=== PATIENT | male | born 1970 | race Caucasian/White ===

== ENCOUNTER → 2022-11-21 09:13 | Outpatient (CLI) | payer BC, SELFPAY ==
[2022-11-21 10:56] LABS: Alanine Aminotransferase 13 U/L (12-78); Albumin Level 1.7 g/dl (3.5-5.0); Albumin/Globulin Ratio 0.6 (1.1-1.8); Alkaline Phosphatase 131 U/L (38-126); Anion Gap 4.8 mEq/L (5-15); Aspartate Amino Transferase 24 U/L (17-59); Blood Urea Nitrogen 11 mg/dl (9-20); Calcium 7.2 mg/dl (8.4-10.2); Carbon Dioxide 29 mmol/L (22.0-30.0); Chloride 102 mmol/L (98-107); Estimated Glomerular Filt Rate 53 ml/min (>60); GFR (African American) 65 ML/MIN (>60); Glucose 101 mg/dl (74-100); Potassium 3.8 mmoL/L (3.5-5.1); Sodium 132 mmol/L (136-145); Total Protein,Serum 4.7 g/dl (6.3-8.2)
[2022-11-21 11:04] LABS: Bilirubin,Total < 0.1 mg/dl (0.2-1.3)
[2022-11-21 11:05] LABS: NT Pro Brain Natriuretic Pep. 427 pg/mL (0-125)
[2022-11-22 11:33] LABS: Prealbumin 25 mg/dL (10-36)
[2022-11-25 23:47] LABS: Hep A Ab, IgM NEGATIVE; Hepatitis B Core Antibody IgM NEGATIVE; Hepatitis B Surface Antigen NEGATIVE; Hepatitis C Antibody <0.1
== END ==
PROVIDERS: PCP Family Medicine; Visit Provider Family Medicine
DX: R60.9 Edema, unspecified (principal); R79.89 Other specified abnormal findings of blood chemistry; F19.11 Other psychoactive substance abuse, in remission; R06.09 Other forms of dyspnea; R74.8 Abnormal levels of other serum enzymes; D64.9 Anemia, unspecified; R23.1 Pallor; L03.90 Cellulitis, unspecified
CPT/HCPCS: 36415; 80053; 80074; 83880; 84134; 84443

== ENCOUNTER → 2022-11-24 13:46 | Outpatient (CLI) | payer BC, SELFPAY | PROVIDERS: PCP Family Medicine; Visit Provider Family Medicine | DX: R60.9 Edema, unspecified (principal); R06.00 Dyspnea, unspecified; F19.11 Other psychoactive substance abuse, in remission | CPT/HCPCS: 36415 ==

== ENCOUNTER → 2022-12-04 08:42 | Outpatient (CLI) | payer BC, SELFPAY ==
--- NOTE | 2022-12-04 08:42 | CT_ITS ---
FINAL REPORT TECHNIQUE: Axial imaging of the chest is obtained after the administration of contrast. 3-D MIP reformatted images were also obtained and reviewed per PE protocol. CLINICAL HISTORY: dyspnea/diffuse edema/anasarca FINDINGS: The pulmonary arteries are well filled. There is no evidence of pulmonary embolus. There is no aortic dissection or intimal flap. There is no axillary lymphadenopathy. An enlarged AP window lymph node measures 2.6 cm. There is no hilar lymphadenopathy. There is no pleural or pericardial effusion. There are changes of emphysema. The lungs are otherwise clear. Limited evaluation of the upper abdomen the demonstrate splenomegaly. There is no acute abnormality. There is no acute osseous abnormality. IMPRESSION: No evidence of pulmonary embolism or aortic dissection. Indeterminate left prevascular lymph node could be reactive. Splenomegaly. Reviewed, Interpreted and Dictated by Anna Brink MD Transcribed by Denise Banuelos Authenticated and [facility]
[2022-12-04 09:36] LABS: MANUAL DIFFERENTIAL MANUAL DIFFERENTIAL (MANUAL DIFF)
[2022-12-04 09:41] LABS: Basophils % 0.3 % (0.1-2.0); Eosinophils # 0.2 K/mm3 (0.0-0.4); Eosinophils % 1.4 % (0.1-12.0); Hematocrit 28.7 % (42.0-52.0); Hemoglobin 9.6 g/dL (14.1-18.0); Lymphocytes % 18.4 % (10-50); Mean Corpuscular HGB Conc 33.5 g/dL (31.8-35.4); Mean Corpuscular Hemoglobin 29.1 pg (27.0-31.2); Mean Corpuscular Volume 86.6 fl (80-94); Monocytes # 0.3 K/mm3 (0.1-1.0); Neutrophils # 8.1 K/mm3 (1.8-7.8); Neutrophils % 76.9 % (37.0-80.0); Platelet Count 221 K/mm3 (142-424); Red Blood Count 3.31 M/mm3 (4.60-6.20); Red Cell Distribution Width 15.2 % (11.5-17.5); White Blood Count 10.6 K/mm3 (4.8-10.8)
[2022-12-04 14:26] LABS: Eosinophils % 5 % (0-3); Lymphocytes % 26 % (10-50); Monocytes % 2 % (2-9); Neutrophils % 67 % (42-76); Platelet Estimate Normal; RBC Morphology Normal; Total Cells Counted 100
[2022-12-06 09:35] LABS: Peripheral Smear Review Scanned Result
== END ==
PROVIDERS: PCP Family Medicine; Visit Provider Nurse Practitioner Family
DX: R06.00 Dyspnea, unspecified (principal); I50.9 Heart failure, unspecified; I42.9 Cardiomyopathy, unspecified; F19.11 Other psychoactive substance abuse, in remission; R60.1 Generalized edema; R60.9 Edema, unspecified; Z72.0 Tobacco use
CPT/HCPCS: 71275; 85007; 85014; 85018; 85048; 85049; Q9967

== ENCOUNTER → 2022-12-07 10:55 | Outpatient (CLI) | payer BC, SELFPAY ==
--- NOTE | 2022-12-07 10:55 | NM_ITS ---
APPROVED REPORT Exam: Nuclear Stress Test Indication: TOB USE, FM HX., SOB, EDEMA Patient Location: Outpatient Stress Tech: Berta Willoughby ME Tech:Mara Dyson, ARRT, RT (R)(N) Ht: 6 ft 0 in Wt: 200 lbs HR: 66 bpm BP: 113/67 mmHg BSA: 2.13 m2 TID: 1.02 History: TOB USE, FM HX., SOB, EDEMA Procedure: Patient received a 0.4 mg of intravenous Lexiscan, resting heart rate 66 bpm, resting blood pressure 113/67 mmHg, with Lexiscan maximum heart rate achived was 86 bpm which is Less than 85 % of the maximum predicted heart rate and blood pressure was 121/60 mmHg. With Lexiscan, patient denied any complaint of chest pain. Electrocardiogram Resting electrocardiogram shows sinus rhythm, with Lexiscan there is less than 1.[address] segment depression noted from the baseline ECG. The EKG portion of the Lexiscan is nondiagnostic. Cardiac Stress and Resting SPECT Images: Cardiac Stress and Resting SPECT images were obtained using technetium 99m Myoview 31.4 mCi stress and 10.52 mCi at rest. Gated SPECT for analysis of segmental wall motion and calculation of the ejection fraction also done. Prone images were also obtained. Cardiac stress and rest respectively show uniform myocardial activity without segmental perfusion abnormality, computer derived ejection fraction is 65% with no regional wall motion abnormality, right ventricle is normal size and contractility. Conclusion: 1. The EKG portion of the Lexiscan is nondiagnostic. 2. No scintigraphic evidence of reversible ischemia seen, computer derived ejection fraction 65% with no regional wall motion abnormality, right ventricle is normal size and contractility. 3. Normal Lexiscan Myoview study. Electronically signed by : Jlaen Read MD 12/08/2022 07:11:13
--- NOTE | 2022-12-07 12:33 | CA_ITS ---
FINAL REPORT CLINICAL HISTORY: dyspnea/diffuse edema/anasarca, smoker, fatigue FINDINGS: DUPLEX VENOUS SONOGRAPHY OF THE BILATERAL LOWER EXTREMITIES Multiple transverse and longitudinal scans were performed of the femoropopliteal deep venous systems, with augmentation and compression maneuvers. FINDINGS: Normal phasic flow was noted in the visualized deep venous systems. No intraluminal increased echogenicity is noted to suggest thrombus. There is normal compression and augmentation of the venous structures. No abnormal venous collaterals are seen. There are mildly enlarged bilateral inguinal lymph nodes which are nonspecific. IMPRESSION: No evidence of deep venous thrombosis of the bilateral lower extremities. Mildly enlarged bilateral inguinal lymph nodes, nonspecific. Reviewed, Interpreted and Dictated by Anna Brink MD Transcribed by Denise Banuelos Authenticated and [facility]
--- NOTE | 2022-12-07 12:33 | CA_ITS ---
APPROVED REPORT EXAM: Comprehensive 2D, Doppler, and color-flow Echocardiogram Gre Instructor: Siomara Tan CRT Ht: 6 ft 0 in Wt: 214lbs BSA: 2.19 BP: 137/42 mmHg Indications: Congestive Heart Failure, Shortness of Breath, Fatigue, Cardiomyopathy 2D Dimensions LVOT 2.05 cm (M/F) 1.5-2.5 LA Volume 27.40 mL LA Volume Index 12.50 mL/m2 (M/F) 16-34 M-Mode Dimensions RVDd 2.90 cm (0.9-2.6) LA Diam 3.21 cm (1.9-4.0) LVDd 5.62 cm (3.5-5.7) Ao Diam 4.65 cm (2.0-3.7) LVDs 2.95 cm (3.5-5.7) IVSd 0.75 cm (0.6-1.1) PWd 0.94 cm (0.6-1.1) EF (Teich) 78.30% FS 47.50% EDV (Teich) 154.90 mL TAPSE 2.82 (<1.7) ESV (Teich) 33.60 mL LV Diastology E Decel Time 250.00 (160-240 msec) E/A Ratio 1.19 MED E' 9.00 (< 7 cm/sec) MED A' 14.50 cm/s E'/MED E' Ratio 11.41 (>14) LAT E' 14.10 (<10 cm/sec) LAT A' 11.40 cm/s E/LAT E' Ratio 7.28 (>14) Aortic Valve AO Peak GR. 9.30 mmHg Mitral Valve MV A Velocity 86.00 (40-130 cm/s) E/A Ratio 1.19 MV Decel. Time 250.00 (160-240 ms) Pulmonary Valve PV Peak Velocity 112.00 (50-150 cm/s) Tricuspid Valve TR P. Velocity 297.00 cm/s RAP Estimate 10.00 mmHg RVSP 45.20 mmHg Left Ventricle Left atrium is normal size, left ventricle is normal size, estimated ejection fraction 55% with no regional wall motion abnormality, diastolic parameters are within normal range. Right Ventricle Right atrium and right ventricle are relatively normal size and function. Aortic Valve Aortic valve is minimally thickened and fibrosed there is no aortic stenosis or aortic insufficiency. Mitral Valve Mitral valve grossly normal, there is trace mitral regurgitation. Tricuspid Valve Tricuspid valve grossly normal, there is trace tricuspid regurgitation, tricuspid regurgitation jet velocity is inadequate for calculation of the right ventricular systolic pressure. Pulmonic Valve Pulmonic valve is poorly visualized. Great Vessels Aortic root is normal size. Inferior vena cava is normal size with normal inspiratory collapse. Pericardium No significant pericardial effusion noted. Conclusion 1. Normal left ventricular size preserved left ventricular systolic function, estimated ejection fraction 55% with no regional wall motion abnormality, diastolic parameters are within normal range. 2. Trace mitral and tricuspid regurgitation. 3. No significant pericardial effusion noted. 4. Inferior vena cava is normal size with normal inspiratory collapse. Electronically signed by : Jalen Read MD 12/08/2022 05:49:59
--- NOTE | 2022-12-07 13:10 | HMH.ITSHM ---
Current Home Medications as stated by this patient Bear Marrero or termite control representative. []TORSEMIDE POTASSIUM BUPRENORPHINE
--- NOTE | 2022-12-07 13:44 | CA_ITS ---
APPROVED REPORT Exam: Pharmacologic Technologist: Nathaly Moore, Ht: 6 ft 0 in Wt: 214 lbs BSA: 2.19 m2 HR: 66 bpm BP: 113/67 mmHg Indications: Shortness of Breath Medical History Medications: TorSEMIDE,,,,, Potassium,,,,, BuPRenorphinE,,,,, AmOXICILin,,,,, Stress Test Details Test: LEXISCAN Reason for pharmacologic stress test: physical limitation. HR Resting HR: 66 bpm Max Heart Rate (APMHR): 169.919984 bpm Max HR Achieved: 91 bpm Target HR (85% APMHR): 143.209811 bpm % of APMHR: 53.85 Recovery HR: 73 bpm BP Resting BP: 113/67 mmHg Max BP: 125/71 mmHg Recovery BP: 125.0/71.0 mmHg ECG Clinical Exercise duration: 04:00 min Highest Stage Achieved: Exercise capacity: 1.0 METs Stress ECG Conclusion Symptoms: SOA, Dizziness, Nausea. Arrhythmias/Ectopy: None ST-T Changes: <1.5mm ST Changes Test Summary REST . . . . . . . Resting REST 17:38 . . 66 . 113/ 67 . . Stage 1 . . . . . . . Myoview Injected Stage 1 01:00 . . 85 . . . . Stage 2 01:00 . . 84 . 118/ 64 . . Stage 3 01:00 . . 86 . 121/ 60 . . Stage 4 01:00 . . 81 . 108/ 60 . Stop exercise at 04:00 RECOVERY 01:00 . . 87 . 115/ 63 . . RECOVERY 02:00 . . 73 . 125/ 71 . . RECOVERY 02:27 . . 75 . 125/ 71 . . Electronically signed by : Jalen Read MD 12/08/2022 07:08:52
== END ==
PROVIDERS: PCP Family Medicine; Visit Provider Nurse Practitioner Family
DX: R06.00 Dyspnea, unspecified (principal); R60.0 Localized edema; R60.1 Generalized edema; I42.9 Cardiomyopathy, unspecified; I50.9 Heart failure, unspecified; F19.11 Other psychoactive substance abuse, in remission; Z72.0 Tobacco use
CPT/HCPCS: 78452; 93017; 93306; 93970; A9502; J2785

== ENCOUNTER → 2022-12-14 12:40 | Outpatient (CLI) | payer BC, SELFPAY ==
[2022-12-14 14:48] LABS: Reticulocyte % (Auto) 1.5 % (0.9-3.2)
[2022-12-14 17:00] LABS: Erythrocyte Sedimentation Rate > 140 mm/hr (0-20)
[2022-12-14 17:37] LABS: Total Protein,Serum 4.8 g/dl (6.3-8.2)
[2022-12-14 17:44] LABS: C-Reactive Protein 28.9 mg/L (0-4)
[2022-12-14 17:51] LABS: Intact Parathyroid Hormone 73.1 pg/mL (7.5-53.5)
[2022-12-14 18:30] LABS: Iron 14 ug/dL (49-181)
[2022-12-14 18:39] LABS: Iron Saturation 0 % (15-55); Total Iron Binding Capacity < 60 ug/dL (261-462)
[2022-12-14 18:45] LABS: Vitamin B12 570 pg/mL (239-931)
[2022-12-14 19:05] LABS: Ferritin 168 ng/ml (17.9-464)
[2022-12-16 06:05] LABS: Haptoglobin 409 mg/dL (29-370)
[2022-12-16 06:11] LABS: HIV Screen 4th Generation wRfx Non Reactive (Non Reactive)
[2022-12-16 14:51] LABS: Alpha-1-Globulin, U 8.1 % (.); Alpha-2-Globulin, U 11.7 % (.); Beta Globulin, U 11.1 % (.); Cytoplasmic (C-ANCA) <1:20 titer (Neg:<1:20); Gamma Globulin, U 21.2 % (.); M-Spike, % Comment: % (Not Observed); Perinuclear (P-ANCA) <1:20 titer (Neg:<1:20); Protein,Total,Urine 219.5 mg/dL (Not Estab.)
[2022-12-16 14:51] LABS: Complement, Total (CH50) 16 U/mL (>41)
[2022-12-18 04:27] LABS: HIV 1 RNA, Real time PCR <20 copies/mL (.)
[2022-12-22 13:43] LABS: APTT 33.2 sec (.); Anti-Cardiolipin Antibody IgG <10 GPL (.); Anti-Cardiolipin Antibody IgM 33 MPL (.); Beta-2 Glycoprotein I Ab, IgA <10 SAU (.); Beta-2 Glycoprotein I Ab, IgG <10 SGU (.); Beta-2 Glycoprotein I Ab, IgM 17 SMU (.); Hexagonal Phase Phospholipid 3 sec (.); INR 1.1 ratio (.); Prothrombin Time 11.4 sec (.); Thrombin Time 16.3 sec (.)
[2022-12-25 19:56] LABS: Rheumatoid Factor IGA 14
[2022-12-25 19:57] LABS: Antinuclear Antibodies (ANA) NEGATIVE; Rheumatoid Factor IGM > 100
== END ==
PROVIDERS: Nurse Practitioner Family; PCP Family Medicine; Visit Provider Internal Medicine
DX: R06.00 Dyspnea, unspecified (principal); E83.51 Hypocalcemia; F19.11 Other psychoactive substance abuse, in remission; I50.9 Heart failure, unspecified; N04.9 Nephrotic syndrome with unspecified morphologic changes; R16.1 Splenomegaly, not elsewhere classified; R59.1 Generalized enlarged lymph nodes; R60.1 Generalized edema; R60.9 Edema, unspecified; R77.0 Abnormality of albumin; R89.8 Other abnormal findings in specimens from other organs, systems and tissues; Z72.0 Tobacco use; Z11.4 Encounter for screening for human immunodeficiency virus [HIV]
CPT/HCPCS: 36415; 82308; 82607; 82728; 82746; 83010; 83540; 83550; 83970; 84155; 84156; 84166; 85044; 85597; 85598; 85610; 85613; 85651; 85670; 85730; 86038; 86140; 86146; 86147; 86162; 86256; 86431; 86703; 87536; G0432

== ENCOUNTER → 2022-12-16 13:58 | Outpatient (CLI) | payer BC, SELFPAY ==
[2022-12-21 12:27] LABS: Albumin, U 58.4 % (.); Alpha-1-Globulin, U 10.3 % (.); Alpha-2-Globulin, U 7.3 % (.); M-Spike, % Not Observed % (Not Observed); Protein,Total,Urine 233.9 mg/dL (Not Estab.)
== END ==
PROVIDERS: PCP Family Medicine; Visit Provider Internal Medicine
DX: R06.00 Dyspnea, unspecified (principal); E83.51 Hypocalcemia; F19.11 Other psychoactive substance abuse, in remission; I50.9 Heart failure, unspecified; N04.9 Nephrotic syndrome with unspecified morphologic changes; R16.1 Splenomegaly, not elsewhere classified; R59.1 Generalized enlarged lymph nodes; R60.1 Generalized edema; R77.0 Abnormality of albumin; R89.8 Other abnormal findings in specimens from other organs, systems and tissues; Z72.0 Tobacco use
CPT/HCPCS: 84156; 84166

== ENCOUNTER 2022-12-18 12:06 | Outpatient (CLI) | payer BC, SELFPAY ==
--- NOTE | 2022-12-18 12:20 | PC.NURSE ---
Gianni0-gautam rabago used ultrasound to obtain 20g iv for blood draw; collected labs; flushed with ns; removed iv;pt d/c home
[2022-12-18 12:26] VITALS: BMI 27.5
[2022-12-18 12:46] LABS: Basophils # 0.1 K/mm3 (0-0.2); Basophils % 0.4 % (0.1-2.0); Eosinophils # 0.2 K/mm3 (0.0-0.4); Eosinophils % 1.8 % (0.1-12.0); Hematocrit 34.5 % (42.0-52.0); Hemoglobin 11.8 g/dL (14.1-18.0); Lymphocytes # 2.3 K/mm3 (0.7-4.5); Lymphocytes % 21.4 % (10-50); Mean Corpuscular HGB Conc 34.1 g/dL (31.8-35.4); Mean Corpuscular Hemoglobin 29.3 pg (27.0-31.2); Mean Corpuscular Volume 85.9 fl (80-94); Mean Platelet Volume 7.8 fl (7.4-10.4); Monocytes # 0.4 K/mm3 (0.1-1.0); Monocytes % 3.3 % (1.7-9.3); Neutrophils # 7.7 K/mm3 (1.8-7.8); Neutrophils % 73.1 % (37.0-80.0); Platelet Count 373 K/mm3 (142-424); Red Blood Count 4.02 M/mm3 (4.60-6.20); White Blood Count 10.5 K/mm3 (4.8-10.8)
[2022-12-18 12:58] LABS: Anion Gap -1.1 mEq/L (5-15); Blood Urea Nitrogen 9 mg/dl (9-20); Calcium 7.2 mg/dl (8.4-10.2); Carbon Dioxide 37 mmol/L (22.0-30.0); Chloride 99 mmol/L (98-107); Creatinine Clearance Estimated 103 mL/min (50-200); Estimated Glomerular Filt Rate 71 ml/min (>60); GFR (African American) 85 ML/MIN (>60); Glucose 101 mg/dl (74-100); Phosphorous 4.6 mg/dl (2.5-4.5); Potassium 3.9 mmoL/L (3.5-5.1); Sodium 131 mmol/L (136-145)
[2022-12-18 13:00] LABS: Creatinine,Urine Random 35 mg/dL (Not Estab.)
[2022-12-18 13:19] LABS: 25-OH Vitamin D, Total < 12.8 ng/mL (30-100)
[2022-12-22 15:20] LABS: Albumin, U 71.7 % (.); Alpha-1-Globulin, U 8.1 % (.); Alpha-2-Globulin, U 5.7 % (.); Beta Globulin, U 6.3 % (.); Gamma Globulin, U 8.2 % (.); M-Spike, % Not Observed % (Not Observed)
== END 2022-12-18 12:30 | disposition home or self-care (01) ==
LOC: INF 12:11
PROVIDERS: Internal Medicine Nephrology; PCP Family Medicine; Visit Provider Internal Medicine Nephrology
DX: N04.9 Nephrotic syndrome with unspecified morphologic changes (principal); E55.9 Vitamin D deficiency, unspecified
CPT/HCPCS: 36415; 80069; 82306; 82570; 84156; 84166; 85025

== ENCOUNTER → 2022-12-21 09:39 | Outpatient (POV) | payer MEDICARE, BC, SELFPAY | PROVIDERS: Visit Provider Internal Medicine Nephrology | DX: Z00.00 Encounter for general adult medical examination without abnormal findings (principal) ==

== ENCOUNTER 2022-12-25 11:55 | Outpatient (CLI) | payer BC, SELFPAY ==
[2022-12-25 12:42] VITALS: BMI 27.1
--- NOTE | 2022-12-25 12:48 | PC.NURSE ---
1248gautam plummer started right upper arm 20g iv with ultrasound;obtained blood return;collected labs;flushed with ns;d/c'd iv
--- NOTE | 2022-12-25 13:03 | US_ITS ---
FINAL REPORT CLINICAL HISTORY: groin pains FINDINGS: Limited sonographic images of the left inguinal region were obtained. There are multiple lymph nodes in the left inguinal region measuring up to 4.2 cm. Presumed fatty jazlyn is identified. There is questionable bowel within the left inguinal canal. IMPRESSION: Enlarged lymph nodes in the left inguinal region. Question hernia. Recommend CT scan. Reviewed, Interpreted and Dictated by Jase Liu MD Transcribed by Jazmine Phan Authenticated and . [facility]
--- NOTE | 2022-12-25 13:03 | US_ITS ---
FINAL REPORT CLINICAL HISTORY: groin pains FINDINGS: Limited sonographic images of the right inguinal region were obtained. There are several lymph nodes in the inguinal region generally measuring up to 3.3 cm or less in size. Presumed fatty jazlyn is identified. No definite hernia is seen. IMPRESSION: Right inguinal lymph nodes. No definite hernia identified. If clinical suspicion for hernia exists, recommend CT for better evaluation. Reviewed, Interpreted and Dictated by Jase Liu MD Transcribed by Jazmine Phan Authenticated and [facility]
[2022-12-25 13:20] LABS: Creatinine,Urine Random 63 mg/dL (Not Estab.)
[2022-12-25 13:25] LABS: Activated Partial Thrombo Time 32.3 seconds (22.8-30.6); INR 0.97 (0.9-1.1); Prothrombin Time 10.5 seconds (10.1-12.5)
[2022-12-28 15:13] LABS: Albumin 0.8 g/dL (2.9-4.4); Alpha-1-Globulin 0.2 g/dL (0.0-0.4); Alpha-2-Globulin 1.1 g/dL (0.4-1.0); Gamma Globulin 1.6 g/dL (0.4-1.8); Protein, Total 4.4 g/dL (6.0-8.5)
[2022-12-29 23:17] LABS: Free Kappa Lt Chains 125.4
== END 2022-12-25 12:48 | disposition home or self-care (01) ==
LOC: RAD 11:56
PROVIDERS: PCP Family Medicine; Referring Provider Internal Medicine Nephrology; Visit Provider Nurse Practitioner Family
DX: R10.30 Lower abdominal pain, unspecified (principal); R59.1 Generalized enlarged lymph nodes; R79.1 Abnormal coagulation profile
CPT/HCPCS: 36415; 76882; 82043; 82570; 83883; 84155; 84165; 85610; 85730

== ENCOUNTER → 2023-01-05 08:43 | Outpatient (CLI) | payer BC, SELFPAY ==
--- NOTE | 2023-01-05 08:43 | NM_ITS ---
FINAL REPORT CLINICAL HISTORY: hypocalcemia, lymphadenopathy 9:25am 25.8 mci tc mdp FINDINGS: EXISTING RELEVANT IMAGING STUDIES: Chest CT dated December 04, 2022 TECHNIQUE: The patient was injected with 25.8 mCi of technetium 99-MDP. 3 hour delayed images were obtained. FINDINGS: There is diffuse increased tracer activity in the bilateral shoulders, hips, knees, ankles, and feet of uncertain significance. No other abnormal tracer activity is identified. IMPRESSION: Diffuse increased tracer activity has described of uncertain significance. Findings could be related to metastatic bone disease. Reviewed, Interpreted and Dictated by Wesley Redd III, MD Transcribed by Villa Morales Authenticated and [facility]
== END ==
PROVIDERS: PCP Family Medicine; Visit Provider Nurse Practitioner Family
DX: E83.51 Hypocalcemia (principal); N04.9 Nephrotic syndrome with unspecified morphologic changes; R59.1 Generalized enlarged lymph nodes; R77.0 Abnormality of albumin
CPT/HCPCS: 78306; A9503

== ENCOUNTER 2023-01-12 13:24 | Outpatient (CLI) | payer BC, SELFPAY ==
[2023-01-12 13:51] VITALS: BMI 28.5
--- NOTE | 2023-01-12 13:57 | PC.NURSE ---
gautam ace used ultrasound to started 20g iv in right upper arm for blood work and dis continued. pt tolerated well and d.c home.
[2023-01-12 14:09] LABS: Basophils # 0.1 K/mm3 (0-0.2); Basophils % 0.4 % (0.1-2.0); Eosinophils # 0.2 K/mm3 (0.0-0.4); Eosinophils % 1.5 % (0.1-12.0); Hematocrit 30.7 % (42.0-52.0); Hemoglobin 10.3 g/dL (14.1-18.0); Lymphocytes # 2.5 K/mm3 (0.7-4.5); Lymphocytes % 20.7 % (10-50); Mean Corpuscular HGB Conc 33.5 g/dL (31.8-35.4); Mean Corpuscular Hemoglobin 28.9 pg (27.0-31.2); Mean Corpuscular Volume 86.2 fl (80-94); Mean Platelet Volume 8.1 fl (7.4-10.4); Monocytes # 0.4 K/mm3 (0.1-1.0); Neutrophils % 74.4 % (37.0-80.0); Platelet Count 341 K/mm3 (142-424); Red Blood Count 3.56 M/mm3 (4.60-6.20); Red Cell Distribution Width 15.1 % (11.5-17.5); White Blood Count 12.2 K/mm3 (4.8-10.8)
[2023-01-12 14:15] LABS: Albumin Level 1.8 g/dl (3.5-5.0); Blood Urea Nitrogen 16 mg/dl (9-20); Calcium 7.1 mg/dl (8.4-10.2); Carbon Dioxide 34 mmol/L (22.0-30.0); Chloride 102 mmol/L (98-107); Creatinine Clearance Estimated 78 mL/min (50-200); Estimated Glomerular Filt Rate 49 ml/min (>60); GFR (African American) 60 ML/MIN (>60); Glucose 99 mg/dl (74-100); Phosphorous 4.7 mg/dl (2.5-4.5); Sodium 128 mmol/L (136-145)
[2023-01-15 21:07] LABS: Cystatin C 2.04 mg/L (0.67-1.14)
== END 2023-01-12 14:00 | disposition home or self-care (01) ==
LOC: LAB 13:27
PROVIDERS: PCP Family Medicine; Visit Provider Internal Medicine Nephrology
DX: E85.9 Amyloidosis, unspecified; N04.8 Nephrotic syndrome with other morphologic changes; R94.4 Abnormal results of kidney function studies; R79.89 Other specified abnormal findings of blood chemistry; N18.30 Chronic kidney disease, stage 3 unspecified
CPT/HCPCS: 36415; 80069; 82610; 85025

== ENCOUNTER → 2023-01-14 12:24 | Outpatient (CLI) | payer BC, SELFPAY ==
[2023-01-14 13:43] LABS: Total Protein 24 Hour,Urine 8775 mg/24 hr (40-90); Total Volume,Urine 2250 mL (800-1800)
[2023-01-18 11:19] LABS: Albumin, U 50.4 % (.); Alpha-1-Globulin, U 12.6 % (.); Alpha-2-Globulin, U 11.1 % (.); Beta Globulin, U 8.1 % (.); Gamma Globulin, U 17.8 % (.); M-Spike, % Comment: % (Not Observed); Prot,24hr calculated 4365 mg/24 hr (30-150); Protein,Total,Urine 198.4 mg/dL (Not Estab.)
== END ==
PROVIDERS: PCP Family Medicine; Visit Provider Internal Medicine Nephrology
DX: N04.9 Nephrotic syndrome with unspecified morphologic changes (principal); E85.9 Amyloidosis, unspecified
CPT/HCPCS: 84155; 84156; 84166

== ENCOUNTER → 2023-01-14 12:39 | Outpatient (POV) | payer MEDICARE, BC, SELFPAY | PROVIDERS: Visit Provider Internal Medicine Nephrology | DX: Z00.00 Encounter for general adult medical examination without abnormal findings (principal) ==

== ENCOUNTER 2023-01-29 13:57 | Outpatient (CLI) | payer BC, SELFPAY ==
[2023-01-29 14:52] VITALS: BMI 27.8
[2023-01-29 15:11] LABS: Basophils % 0.3 % (0.1-2.0); Eosinophils # 0.2 K/mm3 (0.0-0.4); Eosinophils % 2.3 % (0.1-12.0); Hematocrit 28.3 % (42.0-52.0); Hemoglobin 9.6 g/dL (14.1-18.0); Lymphocytes # 1.9 K/mm3 (0.7-4.5); Lymphocytes % 24.2 % (10-50); Mean Corpuscular HGB Conc 33.9 g/dL (31.8-35.4); Mean Corpuscular Hemoglobin 29.1 pg (27.0-31.2); Mean Corpuscular Volume 85.8 fl (80-94); Mean Platelet Volume 8.6 fl (7.4-10.4); Monocytes # 0.3 K/mm3 (0.1-1.0); Monocytes % 3.2 % (1.7-9.3); Neutrophils # 5.6 K/mm3 (1.8-7.8); Neutrophils % 70.1 % (37.0-80.0); Platelet Count 328 K/mm3 (142-424)
[2023-01-29 15:13] LABS: Chloride 97 mmol/L (98-107)
[2023-01-29 15:14] LABS: Potassium 3.6 mmoL/L (3.5-5.1); Sodium 127 mmol/L (136-145)
[2023-01-29 15:16] LABS: Alanine Aminotransferase 14 U/L (12-78); Alkaline Phosphatase 128 U/L (38-126); Anion Gap -0.4 mEq/L (5-15); Aspartate Amino Transferase 28 U/L (17-59); Blood Urea Nitrogen 14 mg/dl (9-20); Carbon Dioxide 34 mmol/L (22.0-30.0); Creatinine Clearance Estimated 96 mL/min (50-200); Estimated Glomerular Filt Rate 64 ml/min (>60); GFR (African American) 77 ML/MIN (>60)
[2023-01-29 15:17] LABS: Albumin Level 1.7 g/dl (3.5-5.0); Albumin/Globulin Ratio 0.6 (1.1-1.8); Globulin 2.8 g/dL (1.3-3.2); Glucose 84 mg/dl (74-100); Total Protein,Serum 4.5 g/dl (6.3-8.2)
[2023-01-29 15:18] LABS: Bilirubin,Total < 0.1 mg/dl (0.2-1.3)
--- NOTE | 2023-01-29 15:45 | PC.NURSE ---
PT CAME INTO GET LABS DRAW VIA ULTRASOUND; LABS WERE DRAWN AND SENT TO LAB
[2023-01-29 15:48] LABS: NT Pro Brain Natriuretic Pep. 293 pg/mL (0-125)
== END 2023-01-29 14:35 | disposition home or self-care (01) ==
PROVIDERS: PCP Family Medicine; Visit Provider Internal Medicine Medical Oncology
DX: D64.9 Anemia, unspecified (principal); I50.9 Heart failure, unspecified
CPT/HCPCS: 36415; 80053; 83880; 85025

== ENCOUNTER 2023-02-18 13:16 | Outpatient (CLI) | payer BC, SELFPAY ==
[2023-02-18 13:22] VITALS: BMI 27.5
--- NOTE | 2023-02-18 13:35 | PC.NURSE ---
gautam edmondson started right upper arm ultrasound guided 20g iv;obtained blood return;collected labs;flushed with ns;d/c and covered with 2x2 and coban.
[2023-02-18 14:08] LABS: Basophils % 0.4 % (0.1-2.0); Eosinophils # 0.2 K/mm3 (0.0-0.4); Eosinophils % 2.2 % (0.1-12.0); Hematocrit 28.5 % (42.0-52.0); Lymphocytes # 2.2 K/mm3 (0.7-4.5); Lymphocytes % 21.9 % (10-50); Mean Corpuscular HGB Conc 31.7 g/dL (31.8-35.4); Mean Corpuscular Hemoglobin 28.6 pg (27.0-31.2); Mean Corpuscular Volume 90.3 fl (80-94); Mean Platelet Volume 6.7 fl (7.4-10.4); Monocytes # 0.3 K/mm3 (0.1-1.0); Monocytes % 3.3 % (1.7-9.3); Neutrophils # 7.3 K/mm3 (1.8-7.8); Neutrophils % 72.1 % (37.0-80.0); Platelet Count 304 K/mm3 (142-424); Red Blood Count 3.15 M/mm3 (4.60-6.20); Red Cell Distribution Width 15.2 % (11.5-17.5); White Blood Count 10.2 K/mm3 (4.8-10.8)
[2023-02-18 15:02] LABS: Chloride 99 mmol/L (98-107); Sodium 131 mmol/L (136-145)
[2023-02-18 15:03] LABS: Albumin Level 1.8 g/dl (3.5-5.0); Potassium 3.4 mmoL/L (3.5-5.1)
[2023-02-18 15:05] LABS: Anion Gap 2.4 mEq/L (5-15); Blood Urea Nitrogen 17 mg/dl (9-20); Carbon Dioxide 33 mmol/L (22.0-30.0); Creatinine Clearance Estimated 88 mL/min (50-200); Estimated Glomerular Filt Rate 58 ml/min (>60); GFR (African American) 70 ML/MIN (>60)
[2023-02-18 15:06] LABS: Calcium 7.1 mg/dl (8.4-10.2); Glucose 99 mg/dl (74-100); Phosphorous 4.4 mg/dl (2.5-4.5)
== END 2023-02-18 13:40 | disposition home or self-care (01) ==
LOC: INF 13:16
PROVIDERS: Internal Medicine Nephrology; PCP Family Medicine; Visit Provider Internal Medicine Medical Oncology
DX: E85.9 Amyloidosis, unspecified (principal); N04.9 Nephrotic syndrome with unspecified morphologic changes
CPT/HCPCS: 36415; 80069; 85025

== ENCOUNTER → 2023-02-22 14:33 | Outpatient (POV) | payer BC, SELFPAY | PROVIDERS: Visit Provider Internal Medicine Nephrology | DX: Z00.00 Encounter for general adult medical examination without abnormal findings (principal) ==

== ENCOUNTER → 2023-02-26 13:04 | Outpatient (CLI) | payer BC, SELFPAY ==
[2023-02-26 13:09] LABS: Microscopic, Urine URINE MICROSCOPIC (MICROSCOPIC)
[2023-02-26 13:29] LABS: Appearance,Urine CLEAR (Clear); Bilirubin,Urine Negative (Negative); Blood, Urine 1+ (Negative); Color,Urine YELLOW (Yellow); Glucose,Urine (UA) Negative (Negative); Ketones,Urine Negative (Negative); Leukocyte Esterase,Urine Negative (Negative); Nitrate,Urine Negative (Negative); Protein,Urine 3+ (Negative); Urobilinogen,Urine 0.2 EU/dl (0.2)
[2023-02-26 13:44] LABS: Bacteria,Urine Trace /lpf; RBC,Urine Occasional #/hpf (0-3); Squamous Epithelial Cell,Urine Occasional #/hpf (0-5); WBC,Urine Occasional #/hpf (0-3)
[2023-02-26 14:06] LABS: Creatinine,Urine Random 52 mg/dL (Not Estab.)
== END ==
PROVIDERS: PCP Family Medicine; Visit Provider Internal Medicine Nephrology
DX: E85.3 Secondary systemic amyloidosis (principal); N04.8 Nephrotic syndrome with other morphologic changes
CPT/HCPCS: 81001; 82570; 84155

== ENCOUNTER → 2023-03-15 12:47 | Outpatient (CLI) | payer BC, SELFPAY ==
[2023-03-15 12:47] VITALS: BMI 29.8
[2023-03-15 13:31] LABS: Microscopic, Urine URINE MICROSCOPIC (MICROSCOPIC)
[2023-03-15 13:34] LABS: Appearance,Urine CLEAR (Clear); Bilirubin,Urine Negative (Negative); Blood, Urine 1+ (Negative); Color,Urine YELLOW (Yellow); Glucose,Urine (UA) Negative (Negative); Ketones,Urine Negative (Negative); Leukocyte Esterase,Urine Negative (Negative); Nitrate,Urine Negative (Negative); PH,Urine 5.5 (5.0-8.5); Protein,Urine 3+ (Negative); Urobilinogen,Urine 0.2 EU/dl (0.2)
[2023-03-15 13:36] LABS: Basophils % 0.1 % (0.1-2.0); Eosinophils # 0.2 K/mm3 (0.0-0.4); Hematocrit 28.4 % (42.0-52.0); Hemoglobin 9.7 g/dL (14.1-18.0); Lymphocytes # 1.3 K/mm3 (0.7-4.5); Lymphocytes % 8.1 % (10-50); Mean Corpuscular HGB Conc 34.1 g/dL (31.8-35.4); Mean Corpuscular Hemoglobin 29.5 pg (27.0-31.2); Mean Corpuscular Volume 86.7 fl (80-94); Mean Platelet Volume 7.9 fl (7.4-10.4); Monocytes # 0.2 K/mm3 (0.1-1.0); Monocytes % 1.1 % (1.7-9.3); Neutrophils # 14.5 K/mm3 (1.8-7.8); Neutrophils % 89.6 % (37.0-80.0); Platelet Count 335 K/mm3 (142-424); Red Blood Count 3.28 M/mm3 (4.60-6.20); White Blood Count 16.2 K/mm3 (4.8-10.8)
[2023-03-15 13:39] LABS: Chloride 91 mmol/L (98-107); Sodium 126 mmol/L (136-145)
[2023-03-15 13:40] LABS: Albumin Level 1.6 g/dl (3.5-5.0); Potassium 3.2 mmoL/L (3.5-5.1)
[2023-03-15 13:41] LABS: MANUAL DIFFERENTIAL MANUAL DIFFERENTIAL (MANUAL DIFF)
[2023-03-15 13:42] LABS: Anion Gap 8.2 mEq/L (5-15); Blood Urea Nitrogen 26 mg/dl (9-20); Carbon Dioxide 30 mmol/L (22.0-30.0); Creatinine Clearance Estimated 69 mL/min (50-200); Estimated Glomerular Filt Rate 40 ml/min (>60); GFR (African American) 48 ML/MIN (>60); Iron 20 ug/dL (49-181); Phosphorous 4.8 mg/dl (2.5-4.5)
[2023-03-15 13:43] LABS: Calcium 6.7 mg/dl (8.4-10.2); Glucose 101 mg/dl (74-100)
[2023-03-15 13:48] LABS: Creatinine,Urine Random 41 mg/dL (Not Estab.)
[2023-03-15 13:53] LABS: Bacteria,Urine Trace /lpf; Squamous Epithelial Cell,Urine Occasional #/hpf (0-5); Total Iron Binding Capacity 98 ug/dL (261-462)
[2023-03-15 14:06] LABS: Total Iron Binding Capacity < 60 ug/dL (261-462)
[2023-03-15 14:18] LABS: Ferritin 224 ng/ml (17.9-464)
[2023-03-15 15:06] LABS: Lymphocytes % 4 % (10-50); Monocytes % 1 % (2-9); Neutrophils % 95 % (42-76); Platelet Estimate Normal; RBC Morphology Normal; Total Cells Counted 100
== END ==
PROVIDERS: Visit Provider Internal Medicine Nephrology
DX: E85.3 Secondary systemic amyloidosis (principal); N04.8 Nephrotic syndrome with other morphologic changes; D64.9 Anemia, unspecified; D50.8 Other iron deficiency anemias
CPT/HCPCS: 80069; 81001; 82570; 82728; 83540; 83550; 84155; 85007; 85025

== ENCOUNTER → 2023-03-18 13:30 | Outpatient (POV) | payer BC, SELFPAY | PROVIDERS: Visit Provider Internal Medicine Nephrology | DX: Z00.00 Encounter for general adult medical examination without abnormal findings (principal) ==

== ENCOUNTER 2023-04-23 11:44 | Outpatient (CLI) | payer BC, SELFPAY ==
[2023-04-23 11:47] VITALS: BMI 27.5
[2023-04-23 12:19] LABS: Basophils % 0.1 % (0.1-2.0); Eosinophils # 0.2 K/mm3 (0.0-0.4); Eosinophils % 1.2 % (0.1-12.0); Hematocrit 25.4 % (42.0-52.0); Hemoglobin 8.3 g/dL (14.1-18.0); Lymphocytes % 13.3 % (10-50); Mean Corpuscular HGB Conc 32.5 g/dL (31.8-35.4); Mean Corpuscular Hemoglobin 27.8 pg (27.0-31.2); Mean Corpuscular Volume 85.5 fl (80-94); Mean Platelet Volume 8.4 fl (7.4-10.4); Monocytes # 0.3 K/mm3 (0.1-1.0); Monocytes % 2.1 % (1.7-9.3); Neutrophils # 12.2 K/mm3 (1.8-7.8); Neutrophils % 83.3 % (37.0-80.0); Platelet Count 306 K/mm3 (142-424); Red Blood Count 2.97 M/mm3 (4.60-6.20); Red Cell Distribution Width 15.2 % (11.5-17.5); White Blood Count 14.7 K/mm3 (4.8-10.8)
[2023-04-23 12:24] LABS: Chloride 96 mmol/L (98-107); Sodium 127 mmol/L (136-145)
[2023-04-23 12:25] LABS: Albumin Level 1.3 g/dl (3.5-5.0); Potassium 3.4 mmoL/L (3.5-5.1)
[2023-04-23 12:27] LABS: Blood Urea Nitrogen 77 mg/dl (9-20); Creatinine Clearance Estimated 26 mL/min (50-200); Estimated Glomerular Filt Rate 15 ml/min (>60); GFR (African American) 18 ML/MIN (>60)
[2023-04-23 12:28] LABS: Anion Gap 14.4 mEq/L (5-15); Carbon Dioxide 20 mmol/L (22.0-30.0); Glucose 98 mg/dl (74-100); Phosphorous 11.4 mg/dl (2.5-4.5)
[2023-04-23 12:29] LABS: Calcium 5.4 mg/dl (8.4-10.2)
--- NOTE | 2023-04-23 15:21 | PC.NURSE ---
Shante Beth called RN at 1227 to report critical lab results of creatinine of 4.30 and Calcium of 5.4. RN repeated and verified pt name, and lab results. RN notified Mayelin in Dr Davidson's office and she stated she would contact pt for further instructions. no additional orders received.
== END 2023-04-23 12:10 | disposition home or self-care (01) ==
LOC: INF 11:45
PROVIDERS: PCP Internal Medicine Nephrology; Visit Provider Internal Medicine Nephrology
DX: E85.3 Secondary systemic amyloidosis (principal); Z45.2 Encounter for adjustment and management of vascular access device
CPT/HCPCS: 36591; 80069; 85025; J1642

== ENCOUNTER 2023-04-26 13:30 | Outpatient (CLI) | payer BC, SELFPAY ==
[2023-04-26 14:16] VITALS: BMI 27.5
[2023-04-26 14:33] LABS: C-Reactive Protein 102.7 mg/L (0-4)
[2023-04-26 15:04] LABS: Erythrocyte Sedimentation Rate > 140 mm/hr (0-20)
[2023-04-26 15:47] LABS: Microscopic, Urine URINE MICROSCOPIC (MICROSCOPIC)
[2023-04-26 15:57] LABS: Appearance,Urine SL CLOUDY (Clear); Bilirubin,Urine Negative (Negative); Blood, Urine 2+ (Negative); Color,Urine YELLOW (Yellow); Glucose,Urine (UA) Negative (Negative); Ketones,Urine Negative (Negative); Leukocyte Esterase,Urine TRACE (Negative); Nitrate,Urine Negative (Negative); PH,Urine 5.5 (5.0-8.5); Protein,Urine 3+ (Negative); Specific Gravity, Urine 1.025 (1.005-1.030); Urobilinogen,Urine 0.2 EU/dl (0.2)
[2023-04-26 16:06] LABS: Creatinine,Urine Random 147 mg/dL (Not Estab.)
[2023-04-26 16:16] LABS: Bacteria,Urine Trace /lpf; WBC,Urine 20-50 #/hpf (0-3); Yeast,Urine 4+ /lpf
[2023-04-27 13:54] LABS: Anti-Centromere B Antibodies <0.2 AI (0.0-0.9)
[2023-04-27 16:00] LABS: Cytoplasmic (C-ANCA) <1:20 titer (Neg:<1:20); Immunoglobulin A, Qn 243 mg/dL (90-386); Immunoglobulin G, Qn 1114 mg/dL (603-1613); Immunoglobulin M, Qn 469 mg/dL (20-172); Perinuclear (P-ANCA) <1:20 titer (Neg:<1:20)
[2023-04-28 14:37] LABS: Albumin, U 31.9 % (.); Alpha-2-Globulin, U 16.1 % (.); M-Spike, % Comment: % (Not Observed)
[2023-05-03 18:09] LABS: HLA-B27 Negative (.)
== END 2023-04-26 13:45 | disposition home or self-care (01) ==
LOC: INF 13:32
PROVIDERS: PCP Family Medicine; Visit Provider Internal Medicine Nephrology
DX: E85.3 Secondary systemic amyloidosis (principal); E85.4 Organ-limited amyloidosis; N08 Glomerular disorders in diseases classified elsewhere
CPT/HCPCS: 36591; 81001; 82570; 82784; 84155; 84156; 84166; 85651; 86140; 86235; 86256; 86334; 86812; 87086; 96523; J1642

== ENCOUNTER → 2023-04-26 13:51 | Outpatient (POV) | payer BC, SELFPAY | PROVIDERS: Visit Provider Internal Medicine Nephrology | DX: Z00.00 Encounter for general adult medical examination without abnormal findings (principal) ==

== ENCOUNTER 2023-07-09 17:44 | Emergency (ER) | payer BC, SELFPAY ==
[2023-07-09 17:46] VITALS: BP 117/70; PULSE 65; RESP 18; TEMP 36.4; O2SAT 100; BMI 32.2
--- NOTE | 2023-07-09 18:00 | PC.NURSE ---
ER MD Arreaga at
--- NOTE | 2023-07-09 18:01 | CT_ITS ---
PROCEDURE INFORMATION: Exam: CT Abdomen And Pelvis With Contrast Exam date and time: 07/09/2023 7:13 PM Age: 52 years old Clinical indication: Abdominal pain; Localized; Left lower quadrant (llq); Additional info: L inguinal hernia, severe pain, irreducible TECHNIQUE: Imaging protocol: Computed tomography of the abdomen and pelvis with contrast. Radiation optimization: All CT scans at this facility use at least one of these dose optimization techniques: automated exposure control; mA and/or kV adjustment per patient size (includes targeted exams where dose is matched to clinical indication); or iterative reconstruction. Contrast material: ISOVUE; Contrast volume: 75 ml; Contrast route: IV; REPORTING DATA: Count of CT and Cardiac NM exams in prior 12 months: This patient has received [address] and 0 known cardiac nuclear medicine studies in the 12 months prior to the current study. COMPARISON: NM BONE SCAN WHOLE BODY 05/01/2023 12:47 FINDINGS: Lungs: Left lower lobe groundglass opacities could correlate with aspiration pneumonitis or atypical pneumonia. Moderate centrilobular emphysema. Mild scarring and atelectasis in the lower lungs. Liver: Normal. No mass. Gallbladder and bile ducts: Cholelithiasis. Pancreas: Normal. No ductal dilation. Spleen: Mild splenomegaly. Adrenal glands: Normal. No mass. Kidneys and ureters: Normal. No hydronephrosis. Stomach and bowel: See Soft tissues finding. Appendix: Unremarkable appendix. Intraperitoneal space: Unremarkable. No free air. No significant fluid collection. Vasculature: The arteries demonstrate moderate atherosclerotic disease. Lymph nodes: Unremarkable. No enlarged lymph nodes. Urinary bladder: Unremarkable as visualized. Reproductive: Unremarkable as visualized. Bones/joints: Status post L5-S1 fusion. Hardware appears intact. T12 and L2 superior endplate fractures could be recent. Soft tissues: There is a left inguinal hernia containing a short segment of small bowel. This portion of small bowel has decreased bowel wall enhancement. Widespread soft tissue calcifications. Small amount of fluid in the left inguinal hernia sac. [id number] anasarca. Other findings: Stigmata of old granulomatous disease. IMPRESSION: 1. There is a left inguinal hernia containing a short segment of small bowel. This portion of small bowel has decreased bowel wall enhancement. This is worrisome for incarceration and strangulation. Surgical evaluation is recommended. 2. Left lower lobe groundglass opacities could correlate with aspiration pneumonitis or atypical pneumonia. 3. Cholelithiasis. 4. T12 and L2 superior endplate fractures could be recent. Please correlate with point tenderness. 5. THIS REPORT CONTAINS FINDINGS THAT MAY BE CRITICAL TO PATIENT CARE. The findings were verbally communicated via telephone conference with Elena Arreaga at 7:48 PM EDT on 07/09/2023. The findings were acknowledged and understood.
--- NOTE | 2023-07-09 18:05 | HMH.EDGENADL ---
Discharge Plan Disposition Patient Disposition: Xfer Short-Term Hosp Condition: Fair Prescriptions Prescriptions: No Action acetaminophen [Tylenol Extra Strength] 500 mg tablet 500 mg PO QID PRN torsemide 20 mg tablet See Rx Instructions .ROUTE .COMPLEX Qty: 30 2RF Rx Instructions: two each morning, one in the evening as needed potassium chloride 20 mEq tablet extended release 20 meq PO DAILY Qty: 30 2RF buprenorphine HCl 8 mg tablet, sublingual 8 mg sublingual BID Referrals Follow up/Referrals: Haris Perkins MD [Primary Care Provider] - See instructions Clinical Impressions Clinical Impression: Incarcerated left inguinal hernia Stand Alone Forms Stand Alone Forms: Transfer Record - ED Instructions Patient Instructions: DI for Acute Abdominal Pain Discharge ED Provider: Elena Arreaga General Adult HPI General Chief complaint: Abdominal Pain Stated complaint: pain Time Seen by Provider: 07/09/23 17:54 History of Present Illness HPI narrative: This patient is a 52-year-old male with a history of incisional disease on Wednesday, , Wednesday dialysis, tobacco use, IV drug use, and known left inguinal hernia presented to the emergency department for evaluation with concern for increased in pain and swelling at the site of his inguinal hernia. He states that it came on suddenly and the pain is severe and constant. He states that the whole area is burning. He is doubled over in pain and states that he is unable to sit up or stand up secondary to pain at the site. He also complains of nausea. He denies any fevers, chills, or other concerns. This pain became acute just prior to arrival. He reports he last had dialysis yesterday and it went fine. Related Data Home Medications Medication Instructions Recorded Confirmed buprenorphine HCl 8 mg sublingual 8 mg sublingual BID 11/24/22 12/28/22 tablet acetaminophen 500 mg tablet 500 mg PO QID PRN 12/18/22 12/28/22 (Tylenol Extra Strength) Previous Rx's Medication Instructions Recorded potassium chloride 20 mEq 20 meq PO DAILY #30 tabs 11/19/22 tablet,extended release torsemide 20 mg tablet See Rx Instructions .Route 11/19/22 .COMPLEX #30 tabs Allergies Allergy/AdvReac Type Severity Reaction Status Date / Time codeine Allergy Mild Verified 12/28/22 12:[address] [facility] Disclaimer: The information contained in this section may have been updated after the patient was seen, as this information can be updated by other users. Medical History Anasarca Anemia Cardiomyopathy CHF (congestive heart failure) Dyspnea Eosinophil count raised Hypocalcemia Low serum albumin Lymphadenopathy Nephrotic syndrome Splenomegaly Tobacco use Surgical History Back pain with history of spinal surgery Hernia of abdominal cavity History of tonsillectomy Family History Other No significant family history Social History Smoking Status: Unknown if ever smoked alcohol intake: never substance use type: former substance user current occupational status: unemployed Travel in the last 8 weeks: None ROS Obtained: Yes All systems reviewed & no additional complaints except as documented Physical Exam General General appearance: alert Comment: Uncomfortable appearing. Doubled over in pain in his wheelchair. Appears older than stated age. Head Head exam: atraumatic and normocephalic Eye Eye exam: Present normal appearance, PERRL and EOMI ENT ENT exam: Present normal exam, normal oropharynx, mucous membranes moist and normal external ear exam Neck Neck exam: Present normal inspection, full ROM and trachea midline; Absent tenderness Chest Chest inspection: Present normal inspection and symmetric chest wall rise; Absent tenderness Respiratory Resp
[2023-07-09 18:48] LABS: Basophils # 0.1 K/mm3 (0-0.2); Basophils % 0.6 % (0.1-2.0); Eosinophils # 0.5 K/mm3 (0.0-0.4); Eosinophils % 3.7 % (0.1-12.0); Hematocrit 32.7 % (42.0-52.0); Hemoglobin 10.3 g/dL (14.1-18.0); Lymphocytes # 2.6 K/mm3 (0.7-4.5); Lymphocytes % 21.3 % (10-50); Mean Corpuscular HGB Conc 31.5 g/dL (31.8-35.4); Mean Corpuscular Hemoglobin 30.6 pg (27.0-31.2); Mean Corpuscular Volume 97.2 fl (80-94); Monocytes # 0.6 K/mm3 (0.1-1.0); Monocytes % 4.5 % (1.7-9.3); Neutrophils # 8.6 K/mm3 (1.8-7.8); Neutrophils % 69.9 % (37.0-80.0); Platelet Count 345 K/mm3 (142-424); Red Blood Count 3.36 M/mm3 (4.60-6.20); Red Cell Distribution Width 16.5 % (11.5-17.5); White Blood Count 12.3 K/mm3 (4.8-10.8)
[2023-07-09 18:49] VITALS: BP 133/85; PULSE 63; RESP 18; O2SAT 92
[2023-07-09 18:55] LABS: Alanine Aminotransferase 15 U/L (12-78); Albumin Level 1.7 g/dl (3.5-5.0); Albumin/Globulin Ratio 0.5 (1.1-1.8); Alkaline Phosphatase 214 U/L (38-126); Aspartate Amino Transferase 20 U/L (17-59); Blood Urea Nitrogen 16 mg/dl (9-20); Calcium 11.6 mg/dl (8.4-10.2); Carbon Dioxide 30 mmol/L (22.0-30.0); Chloride 95 mmol/L (98-107); Creatinine Clearance Estimated 26 mL/min (50-200); Estimated Glomerular Filt Rate 18 ml/min (>60); GFR (African American) 22 ML/MIN (>60); Globulin 3.2 g/dL (1.3-3.2); Glucose 95 mg/dl (74-100); Sodium 130 mmol/L (136-145); Total Protein,Serum 4.9 g/dl (6.3-8.2)
[2023-07-09 18:57] LABS: Bilirubin,Total < 0.1 mg/dl (0.2-1.3)
[2023-07-09 19:00] VITALS: BP 105/58; PULSE 60; O2SAT 100
--- NOTE | 2023-07-09 19:22 | HMH.ITSTN ---
md aware of low gfr still wanted to proceed with contrast scan , md signed injection consent
--- NOTE | 2023-07-09 19:47 | PC.NURSE ---
call return from dr beasley
--- NOTE | 2023-07-09 19:51 | PC.NURSE ---
Spoke with Ovidio at transfer center, advised he will have Dr. Vogel call back when available.
--- NOTE | 2023-07-09 20:16 | PC.NURSE ---
called report to Umang serrato RN at
--- NOTE | 2023-07-09 20:21 | PC.NURSE ---
[facility] called for transportation
[2023-07-09 22:24] VITALS: BP 160/77; PULSE 70; RESP 18; TEMP 36.6; O2SAT 98
== END 2023-07-09 21:55 | disposition short-term general hospital (02) ==
PROVIDERS: Emergency Provider Emergency Medicine; PCP Family Medicine
DX: K40.30 Unilateral inguinal hernia, with obstruction, without gangrene, not specified as recurrent (principal); E87.1 Hypo-osmolality and hyponatremia; F17.200 Nicotine dependence, unspecified, uncomplicated; D64.9 Anemia, unspecified; N18.6 End stage renal disease; Z99.2 Dependence on renal dialysis; R10.0 Acute abdomen
CPT/HCPCS: 74177; 80053; 83605; 85025; 87040; 96361; 96374; 96375; 96376; 99291; J0131; J2405; J2543; Q9967